=== PATIENT | male | born 1995 | race Two or more races ===

== ENCOUNTER 2023-04-25 17:09 | Emergency (ER) | payer BC, OTHER ==
[2023-04-25] MEDS ORDERED: ONDANSETRON HCL 4 MG/2 ML VIAL IV ONE (17:45)
[2023-04-25] MEDS ORDERED: MORPHINE SULFATE 4 MG/ML SYR/VIAL IV ONE (17:45)
[2023-04-25] MEDS ORDERED: NEOMYCIN-BACITRACIN-POLYM UNITDOSE PKG TOP OINT TOP ONE (20:15)
[2023-04-25] MEDS ORDERED: IBUP-1455 PO (20:38)
[2023-04-25] MEDS ORDERED: CYCL-837 PO (20:38)
[2023-04-25] MEDS ORDERED: KETOROLAC TROMETH 30 MG/ML 1ML VIAL IM ONE (21:00)
[2023-04-25 21:39] VITALS: BP 120/87
== END 2023-04-25 21:39 | disposition home or self-care (01) ==
LOC: ER 17:09
DX: S82.892A Other fracture of left lower leg, initial encounter for closed fracture (principal); S22.41XA Multiple fractures of ribs, right side, initial encounter for closed fracture; R51.9 Headache, unspecified; V23.49XA Other motorcycle driver injured in collision with car, pick-up truck or van in traffic accident, initial encounter; Y93.89 Activity, other specified; Y92.410 Unspecified street and highway as the place of occurrence of the external cause; Y99.8 Other external cause status
CPT/HCPCS: 29515; 70450; 71250; 72125; 73080; 73610; 74176; 96372; 99285; J1885